=== PATIENT | male | born 1960 | race Caucasian/White ===

== ENCOUNTER 2017-03-30 20:33 | Emergency (ER) | payer OTHER ==
[~2017-03-30] VITALS: Ht 182.9 cm; Wt 90.7 kg
[2017-03-30] MEDS ORDERED: CLINDAMYCIN HC300 MG PO (21:50)
== END 2017-03-30 22:03 | disposition home or self-care (01) ==
LOC: ED 20:33
DX: K08.89 Other specified disorders of teeth and supporting structures (principal)
CPT/HCPCS: 99283